=== PATIENT | male | born 1960 | race Caucasian/White ===

== ENCOUNTER 2023-08-22 07:39 | Outpatient (RCR) | payer OTHER, SELFPAY ==
[2023-08-22 11:46] LABS: Basophils Percent Auto 0.5 % (0.2-2.0); Eosinophils Absolute Auto 0.3 10^3/uL (0.0-0.7); Eosinophils Percent Auto 3.4 % (0.9-7.0); Hematocrit 39.5 % (42.0-54.0); Hemoglobin 12.6 g/dL (14.0-18.0); Immature Granulocytes Abs Auto 0.04 10^3/uL (0.00-0.03); Immature Granulocytes Pct Auto 0.5 % (0.0-0.5); Lymphocytes Absolute Auto 2.3 10^3/uL (1.2-3.8); Lymphocytes Percent Auto 28.3 % (20.5-60.0); Mean Corpuscular HGB Conc 31.9 g/dL (29.9-35.2); Mean Corpuscular Hemoglobin 30.4 pg (25.9-34.0); Mean Corpuscular Volume 95.2 fL (80.0-94.0); Mean Platelet Volume 10.7 fL (9.5-13.5); Monocytes Absolute Auto 0.8 10^3/uL (0.3-0.8); Monocytes Percent Auto 9.4 % (1.7-12.0); Neutrophils Absolute Auto 4.6 10^3/uL (1.4-6.5); Neutrophils Percent Auto 57.9 % (43.0-75.0); Platelet Count 135 10^3/uL (150-450); Red Blood Count 4.15 10^6/uL (4.70-6.10); Red Cell Distribution Width 14.9 % (11.0-15.0)
[2023-08-22 12:00] LABS: Alanine Aminotransferase 31 U/L (16-63); Albumin Globulin Ratio 0.9; Albumin Level 3.5 g/dL (3.4-5.0); Alkaline Phosphatase 58 U/L (46-116); Anion Gap 9.6; Aspartate Amino Transferase 39 U/L (15-37); BUN Creatinine Ratio 20.8; Bilirubin Total 0.5 mg/dL (0.2-1.0); Calcium 9.1 mg/dL (8.5-10.1); Carbon Dioxide 34.6 mmol/L (21.0-32.0); Chloride 100 mmol/L (98-107); Estimated GFR (African America >60 (>=60); Estimated GFR (Non-African Ame >60 (>=60); Globulin 3.8 g/dL; Glucose 122 mg/dL (74-106); Lactate Dehydrogenase 244 U/L (85-227); Potassium 4.2 mmol/L (3.5-5.1); Sodium 140 mmol/L (136-145); Total Protein 7.3 g/dL (6.4-8.2)
== END 2023-08-24 23:59 | disposition home or self-care (01) ==
LOC: INF 07:39
PROVIDERS: Visit Provider Internal Medicine Hematology & Oncology
DX: C85.11 Unspecified B-cell lymphoma, lymph nodes of head, face, and neck (principal)
CPT/HCPCS: 36415; 80053; 83615; 85025; 99205; G0463

== ENCOUNTER 2023-10-24 07:23 | Outpatient (RCR) | payer OTHER, SELFPAY ==
[2023-10-10 10:55] VITALS: BP 167/75; PULSE 82; RESP 20; TEMP 36.7; O2SAT 93
[2023-10-10] MEDS: ACETAMINOPHEN 500 MG TABLET 1000 MG PO (11:01)
[2023-10-10] MEDS: SODIUM CHLORIDE 0.9% IV ×3 (11:03→11:56)
[2023-10-10] MEDS: DIPHENHYDRAMINE HCL IV (11:03)
--- NOTE | 2023-10-10 11:11 | PC.NURSE ---
1045 Reviewed regimen with patient, what to expect. Educated on potential reaction, notify nurse of chills, shaking fever, shortness of breath etc. heart tones distant, strong.regular. Lungs clear to auscultation posteriorly. Brother Accompanies patient.
[2023-10-10] MEDS: METHYLPREDNISOLONE SOD SUCC IV (11:24)
[2023-10-10] MEDS: RITUXIMAB PVVR IV (11:56)
--- NOTE | 2023-10-10 12:01 | PC.NURSE ---
1200 Rituximab initiated per protocol at 50 ml/hr patient aware to notify staff for any chills/fever shaking, itching etc.
[2023-10-10 12:12] VITALS: BP 131/70; PULSE 60; RESP 18; TEMP 36.5; O2SAT 93
--- NOTE | 2023-10-10 12:59 | PC.NURSE ---
1300 tolerating infusion, no s/s of reaction, increased rate to 100 ml hr.
--- NOTE | 2023-10-10 13:29 | PC.NURSE ---
Tolerating infusion at 100 ml hr. No s/s of reaction. Meal ordered.
[2023-10-10 13:32] VITALS: BP 157/90; PULSE 60; RESP 18; TEMP 36.4
[2023-10-10 14:18] VITALS: BP 152/80; PULSE 80; RESP 18; TEMP 36.8; O2SAT 96
--- NOTE | 2023-10-10 14:18 | PC.NURSE ---
1300 tolerating infusionn without any s/s of reaction, rate increased to 150 ml hr.
--- NOTE | 2023-10-10 14:30 | PC.NURSE ---
1430 tolerating infusionwithout s/s of reaction. Eats 100 meal.
[2023-10-10 15:51] VITALS: BP 156/78; PULSE 70; RESP 18; TEMP 36.6; O2SAT 95
--- NOTE | 2023-10-10 15:52 | PC.NURSE ---
1530 up to bathroom x 2, post chemo infusion precautions discussed, patient verbalizes understanding. Tolerating infusion without any outward s/s of reaction
--- NOTE | 2023-10-10 16:45 | PC.NURSE ---
Infusion complete. IV catheter dc'd, site clear, catheter intact. tolerated well. 1640 Tolerated infusion with no signs of reaction. Released ambulatory
[2023-10-17 10:06] VITALS: BP 132/66; PULSE 66; RESP 20; TEMP 36.1; O2SAT 92
--- NOTE | 2023-10-17 10:11 | PC.NURSE ---
0845 arrival ambulatory, alert oriented, denies any complaints, respirations even regular. heart tones strong and regular. IV initated left wrist area with #20 IV, tolerated well, excellent blood return. labs drawn. sent to lab. tolerated well.
[2023-10-17 10:16] LABS: Alanine Aminotransferase 21 U/L (16-63); Albumin Globulin Ratio 0.9; Albumin Level 3.6 g/dL (3.4-5.0); Alkaline Phosphatase 63 U/L (46-116); Anion Gap 13.7; Aspartate Amino Transferase 8 U/L (15-37); BUN Creatinine Ratio 18.6; Bilirubin Total 0.7 mg/dL (0.2-1.0); Calcium 9.4 mg/dL (8.5-10.1); Carbon Dioxide 30.2 mmol/L (21.0-32.0); Chloride 100 mmol/L (98-107); Estimated GFR (African America >60 (>=60); Estimated GFR (Non-African Ame >60 (>=60); Globulin 3.8 g/dL; Glucose 233 mg/dL (74-106); Potassium 3.9 mmol/L (3.5-5.1); Sodium 140 mmol/L (136-145); Total Protein 7.4 g/dL (6.4-8.2)
[2023-10-17 10:57] LABS: Basophils Percent Auto 0.6 % (0.2-2.0); Eosinophils Absolute Auto 0.2 10^3/uL (0.0-0.7); Eosinophils Percent Auto 3.4 % (0.9-7.0); Hematocrit 41.4 % (42.0-54.0); Hemoglobin 13.2 g/dL (14.0-18.0); Immature Granulocytes Abs Auto 0.06 10^3/uL (0.00-0.03); Immature Granulocytes Pct Auto 0.9 % (0.0-0.5); Lymphocytes Absolute Auto 1.5 10^3/uL (1.2-3.8); Lymphocytes Percent Auto 21.9 % (20.5-60.0); Mean Corpuscular HGB Conc 31.9 g/dL (29.9-35.2); Mean Corpuscular Hemoglobin 30.1 pg (25.9-34.0); Mean Corpuscular Volume 94.3 fL (80.0-94.0); Mean Platelet Volume 11.7 fL (9.5-13.5); Monocytes Absolute Auto 0.7 10^3/uL (0.3-0.8); Monocytes Percent Auto 9.7 % (1.7-12.0); Neutrophils Absolute Auto 4.5 10^3/uL (1.4-6.5); Neutrophils Percent Auto 63.5 % (43.0-75.0); Platelet Count 136 10^3/uL (150-450); Red Blood Count 4.39 10^6/uL (4.70-6.10); Red Cell Distribution Width 14.1 % (11.0-15.0)
[2023-10-17] MEDS: SODIUM CHLORIDE 0.9% IV ×3 (11:32→12:19)
[2023-10-17] MEDS: DIPHENHYDRAMINE HCL IV (11:32)
[2023-10-17] MEDS: 0.9 % SODIUM CHLORIDE 250 ML 10 ML IV (11:34)
--- NOTE | 2023-10-17 11:35 | PC.NURSE ---
Iniitiated pre-meds as ordered.
[2023-10-17] MEDS: ACETAMINOPHEN 500 MG TABLET 1000 MG PO (11:43)
[2023-10-17] MEDS: METHYLPREDNISOLONE SOD SUCC IV (11:56)
[2023-10-17] MEDS: RITUXIMAB PVVR IV (12:19)
--- NOTE | 2023-10-17 12:52 | PC.NURSE ---
1219 IV Rituximab initated at 100 mg/her. instructed patient to call for any s/s of reaction. verbalized understanding. 1250 Rituximab increased to 200mg/her, tolerating well. resting quietly in chair respirations with ease. Family member at chairside.
--- NOTE | 2023-10-17 14:06 | PC.NURSE ---
1320 tolerating infusion without any issues. rate increaased to 300 mg/hr. 1350 rituximab rate increasead to 400mg/hr. ppatient tolerating well. dozes in recliner. brother at bedside. 1410 Eating meal at bedside.
--- NOTE | 2023-10-17 16:09 | PC.NURSE ---
1600 infusion completed. IV site dc'd catheter intact. cottonball and coban applied. Released ambulatory
[2023-10-24 09:31] LABS: Basophils Percent Auto 0.4 % (0.2-2.0); Eosinophils Absolute Auto 0.1 10^3/uL (0.0-0.7); Eosinophils Percent Auto 1.5 % (0.9-7.0); Hematocrit 41.3 % (42.0-54.0); Hemoglobin 13.3 g/dL (14.0-18.0); Immature Granulocytes Abs Auto 0.06 10^3/uL (0.00-0.03); Immature Granulocytes Pct Auto 0.7 % (0.0-0.5); Lymphocytes Absolute Auto 1.9 10^3/uL (1.2-3.8); Lymphocytes Percent Auto 20.6 % (20.5-60.0); Mean Corpuscular HGB Conc 32.2 g/dL (29.9-35.2); Mean Corpuscular Hemoglobin 30.2 pg (25.9-34.0); Mean Corpuscular Volume 93.9 fL (80.0-94.0); Mean Platelet Volume 11.1 fL (9.5-13.5); Monocytes Absolute Auto 0.9 10^3/uL (0.3-0.8); Monocytes Percent Auto 9.6 % (1.7-12.0); Neutrophils Absolute Auto 6.2 10^3/uL (1.4-6.5); Neutrophils Percent Auto 67.2 % (43.0-75.0); Platelet Count 134 10^3/uL (150-450); Red Cell Distribution Width 13.7 % (11.0-15.0); White Blood Count 9.2 10^3/uL (4.0-11.0)
[2023-10-24 09:36] VITALS: BP 132/80; PULSE 80; RESP 18; TEMP 36.9; O2SAT 94
[2023-10-24 09:53] LABS: Alanine Aminotransferase 25 U/L (16-63); Albumin Globulin Ratio 0.9; Albumin Level 3.5 g/dL (3.4-5.0); Alkaline Phosphatase 78 U/L (46-116); Anion Gap 11.1; Aspartate Amino Transferase 10 U/L (15-37); BUN Creatinine Ratio 14.7; Bilirubin Total 0.5 mg/dL (0.2-1.0); Calcium 9.4 mg/dL (8.5-10.1); Carbon Dioxide 31.1 mmol/L (21.0-32.0); Chloride 98 mmol/L (98-107); Estimated GFR (African America >60 (>=60); Estimated GFR (Non-African Ame >60 (>=60); Globulin 4.1 g/dL; Glucose 310 mg/dL (74-106); Potassium 4.2 mmol/L (3.5-5.1); Sodium 136 mmol/L (136-145); Total Protein 7.6 g/dL (6.4-8.2)
[2023-10-24] MEDS: 0.9 % SODIUM CHLORIDE 250 ML 30 ML IV (10:30)
[2023-10-24] MEDS: DIPHENHYDRAMINE HCL IV (10:50)
[2023-10-24] MEDS: SODIUM CHLORIDE 0.9% IV ×3 (10:50→11:26)
[2023-10-24] MEDS: ACETAMINOPHEN 500 MG TABLET 1000 MG PO (10:50)
[2023-10-24] MEDS: METHYLPREDNISOLONE SOD SUCC IV (11:13)
[2023-10-24] MEDS: RITUXIMAB PVVR IV (11:26)
--- NOTE | 2023-10-24 12:33 | PC.NURSE ---
tolerating infusion without issues. appears to be dozing in recliner, respirations with ease
--- NOTE | 2023-10-24 12:54 | PC.NURSE ---
tolerating infusion without any adverse affects. infusing at 300 mg/hr ( starated at 100mg/hr and increased every 30 mins by100 mg to max dose of 400mg/hr. Eats meal.
[2023-10-24 13:55] VITALS: BP 162/85; PULSE 69; RESP 20; TEMP 36.6; O2SAT 92
--- NOTE | 2023-10-24 15:11 | PC.NURSE ---
1445 Infusion completed, tolerated without any adverse side effects.IV site dc'd catheter intact, site clear. patient tolerated well. cottonball secured with coban. Released ambulatory.
== END 2023-10-25 23:59 | disposition home or self-care (01) ==
LOC: INF 07:23
PROVIDERS: Visit Provider Internal Medicine Hematology & Oncology
DX: Z51.11 Encounter for antineoplastic chemotherapy (principal); C85.11 Unspecified B-cell lymphoma, lymph nodes of head, face, and neck; D64.9 Anemia, unspecified; C82.61 Cutaneous follicle center lymphoma, lymph nodes of head, face, and neck; Z87.891 Personal history of nicotine dependence; J44.9 Chronic obstructive pulmonary disease, unspecified; I48.92 Unspecified atrial flutter; Z79.01 Long term (current) use of anticoagulants; R73.9 Hyperglycemia, unspecified; I80.9 Phlebitis and thrombophlebitis of unspecified site; I11.0 Hypertensive heart disease with heart failure; M48.00 Spinal stenosis, site unspecified; E66.9 Obesity, unspecified
CPT/HCPCS: 36415; 80053; 85025; 96367; 96368; 96413; 96415; G0463; J1200; J2930; Q5119

== ENCOUNTER 2023-11-21 07:27 | Outpatient (RCR) | payer OTHER, SELFPAY ==
[2023-11-07 09:18] VITALS: BP 112/77; PULSE 54; RESP 20; TEMP 36.3; O2SAT 93
--- NOTE | 2023-11-07 09:21 | PC.NURSE ---
patient has no complaints at this time. Lungs clear to ausculatation. heart tones regular at this time. some pretibial edema, which patient states this isnormal
[2023-11-07 09:31] LABS: Basophils Percent Auto 0.4 % (0.2-2.0); Eosinophils Absolute Auto 0.2 10^3/uL (0.0-0.7); Eosinophils Percent Auto 2.5 % (0.9-7.0); Hematocrit 38.8 % (42.0-54.0); Hemoglobin 12.5 g/dL (14.0-18.0); Immature Granulocytes Abs Auto 0.04 10^3/uL (0.00-0.03); Immature Granulocytes Pct Auto 0.5 % (0.0-0.5); Lymphocytes Absolute Auto 1.8 10^3/uL (1.2-3.8); Lymphocytes Percent Auto 22.3 % (20.5-60.0); Mean Corpuscular HGB Conc 32.2 g/dL (29.9-35.2); Mean Corpuscular Hemoglobin 30.2 pg (25.9-34.0); Mean Corpuscular Volume 93.7 fL (80.0-94.0); Mean Platelet Volume 11.2 fL (9.5-13.5); Monocytes Absolute Auto 0.7 10^3/uL (0.3-0.8); Monocytes Percent Auto 8.8 % (1.7-12.0); Neutrophils Absolute Auto 5.2 10^3/uL (1.4-6.5); Neutrophils Percent Auto 65.5 % (43.0-75.0); Platelet Count 143 10^3/uL (150-450); Red Blood Count 4.14 10^6/uL (4.70-6.10); Red Cell Distribution Width 13.9 % (11.0-15.0)
[2023-11-07 10:14] LABS: Alanine Aminotransferase 26 U/L (16-63); Albumin Globulin Ratio 0.8; Albumin Level 3.3 g/dL (3.4-5.0); Alkaline Phosphatase 66 U/L (46-116); Anion Gap 11.6; Aspartate Amino Transferase 13 U/L (15-37); BUN Creatinine Ratio 13.4; Bilirubin Total 0.5 mg/dL (0.2-1.0); Calcium 9.1 mg/dL (8.5-10.1); Carbon Dioxide 30.3 mmol/L (21.0-32.0); Chloride 99 mmol/L (98-107); Estimated GFR (African America >60 (>=60); Estimated GFR (Non-African Ame >60 (>=60); Glucose 232 mg/dL (74-106); Potassium 3.9 mmol/L (3.5-5.1); Sodium 137 mmol/L (136-145); Total Protein 7.3 g/dL (6.4-8.2)
[2023-11-07] MEDS: SODIUM CHLORIDE 0.9% IV ×3 (10:15→10:55)
[2023-11-07] MEDS: ACETAMINOPHEN 500 MG TABLET 1000 MG PO (10:15)
[2023-11-07] MEDS: METHYLPREDNISOLONE SOD SUCC IV (10:15)
--- NOTE | 2023-11-07 10:32 | PC.NURSE ---
1015 premeds initiated as ordered. relaxing in recliner doing puzzle books, drinking water. brother at chairside.
[2023-11-07] MEDS: DIPHENHYDRAMINE HCL IV (10:37)
[2023-11-07] MEDS: RITUXIMAB PVVR IV (10:55)
[2023-11-07] MEDS: 0.9 % SODIUM CHLORIDE 250 ML 10 ML IV (11:00)
--- NOTE | 2023-11-07 11:06 | PC.NURSE ---
1100 Premeds infused. IV rituximab-pvvr initiated, initiated at 100 mg/hr for 30 mins, then increased to 200 mg/hr for 30 mins, followed by 300 mg per hour for 30 mins, 400 mg/hr for remainder
--- NOTE | 2023-11-07 13:36 | PC.NURSE ---
tolerating infusion without any issues. eats 100% of meal.
--- NOTE | 2023-11-07 13:59 | PC.NURSE ---
134 up to bathroom, gait steady
[2023-11-07 14:46] VITALS: BP 147/76; PULSE 68; RESP 20; TEMP 36.3; O2SAT 92
--- NOTE | 2023-11-07 14:47 | PC.NURSE ---
1440 Infusion completed. line flushed with normal saline, IV dc'd from rt forearm, catheter intact, site clear. cottonball and coban applied. Up to bathroom. 1445 Released ambulatory
[2023-11-14 09:07] VITALS: BP 175/66; PULSE 67; RESP 18; TEMP 36.4; O2SAT 94
[2023-11-14 09:19] LABS: Basophils Percent Auto 0.5 % (0.2-2.0); Eosinophils Absolute Auto 0.2 10^3/uL (0.0-0.7); Eosinophils Percent Auto 2.5 % (0.9-7.0); Hematocrit 39.8 % (42.0-54.0); Hemoglobin 12.9 g/dL (14.0-18.0); Immature Granulocytes Abs Auto 0.07 10^3/uL (0.00-0.03); Immature Granulocytes Pct Auto 0.8 % (0.0-0.5); Lymphocytes Percent Auto 23.5 % (20.5-60.0); Mean Corpuscular HGB Conc 32.4 g/dL (29.9-35.2); Mean Corpuscular Hemoglobin 30.1 pg (25.9-34.0); Mean Platelet Volume 11.2 fL (9.5-13.5); Monocytes Percent Auto 11.3 % (1.7-12.0); Neutrophils Absolute Auto 5.2 10^3/uL (1.4-6.5); Neutrophils Percent Auto 61.4 % (43.0-75.0); Platelet Count 152 10^3/uL (150-450); Red Blood Count 4.28 10^6/uL (4.70-6.10); Red Cell Distribution Width 13.9 % (11.0-15.0); White Blood Count 8.4 10^3/uL (4.0-11.0)
[2023-11-14 09:23] LABS: Alanine Aminotransferase 27 U/L (16-63); Albumin Globulin Ratio 0.9; Albumin Level 3.4 g/dL (3.4-5.0); Alkaline Phosphatase 62 U/L (46-116); Anion Gap 14.2; Aspartate Amino Transferase 9 U/L (15-37); BUN Creatinine Ratio 14.8; Bilirubin Total 0.5 mg/dL (0.2-1.0); Calcium 9.1 mg/dL (8.5-10.1); Carbon Dioxide 28.8 mmol/L (21.0-32.0); Chloride 97 mmol/L (98-107); Estimated GFR (African America >60 (>=60); Estimated GFR (Non-African Ame >60 (>=60); Globulin 3.9 g/dL; Glucose 215 mg/dL (74-106); Sodium 136 mmol/L (136-145); Total Protein 7.3 g/dL (6.4-8.2)
[2023-11-14] MEDS: SODIUM CHLORIDE 0.9% IV ×3 (10:00→10:46)
[2023-11-14] MEDS: DIPHENHYDRAMINE HCL IV (10:00)
[2023-11-14] MEDS: ACETAMINOPHEN 500 MG TABLET 1000 MG PO (10:14)
[2023-11-14] MEDS: 0.9 % SODIUM CHLORIDE 250 ML 10 ML IV (10:15)
[2023-11-14] MEDS: METHYLPREDNISOLONE SOD SUCC IV (10:22)
[2023-11-14] MEDS: RITUXIMAB PVVR IV (10:46)
--- NOTE | 2023-11-14 11:28 | PC.NURSE ---
1045 Rituximab 940 mg/500cc initiated at 100 mg hr for 30 mins. Patient instructed on s/s of reaction, verbalizes understanding.
--- NOTE | 2023-11-14 11:30 | PC.NURSE ---
1115 tolerating infusion without any s/s of reaction, rate increased to 200 mg hr for 30 mins
--- NOTE | 2023-11-14 11:46 | PC.NURSE ---
1145 tolerating well no s/s reaction, rarte increased to 300 mg hr.
--- NOTE | 2023-11-14 14:52 | PC.NURSE ---
1350 Infusion completed, tolerated well. IV site dc'd catheter intact. cottonball applied. coban applied. released ambulatory.
[2023-11-21 09:06] VITALS: BP 172/83; PULSE 85; RESP 18; TEMP 36.3; O2SAT 93
--- NOTE | 2023-11-21 09:09 | PC.NURSE ---
0855 Arrival ambulatory. IV initiated rt forearm, tolerated well. Labs drawn, sent to lab.
[2023-11-21 09:16] LABS: Basophils Percent Auto 0.4 % (0.2-2.0); Eosinophils Absolute Auto 0.2 10^3/uL (0.0-0.7); Hematocrit 39.5 % (42.0-54.0); Immature Granulocytes Abs Auto 0.05 10^3/uL (0.00-0.03); Immature Granulocytes Pct Auto 0.6 % (0.0-0.5); Lymphocytes Absolute Auto 1.8 10^3/uL (1.2-3.8); Lymphocytes Percent Auto 22.6 % (20.5-60.0); Mean Corpuscular HGB Conc 32.9 g/dL (29.9-35.2); Mean Corpuscular Hemoglobin 30.6 pg (25.9-34.0); Mean Corpuscular Volume 92.9 fL (80.0-94.0); Mean Platelet Volume 11.2 fL (9.5-13.5); Monocytes Absolute Auto 0.7 10^3/uL (0.3-0.8); Monocytes Percent Auto 8.8 % (1.7-12.0); Neutrophils Absolute Auto 5.3 10^3/uL (1.4-6.5); Neutrophils Percent Auto 65.6 % (43.0-75.0); Platelet Count 139 10^3/uL (150-450); Red Blood Count 4.25 10^6/uL (4.70-6.10); Red Cell Distribution Width 13.8 % (11.0-15.0); White Blood Count 8.1 10^3/uL (4.0-11.0)
--- NOTE | 2023-11-21 09:18 | PC.NURSE ---
Dr Valenzuela in for appt.
[2023-11-21 09:23] LABS: Anion Gap 12.9; Calcium 8.9 mg/dL (8.5-10.1); Carbon Dioxide 29.9 mmol/L (21.0-32.0); Chloride 96 mmol/L (98-107); Estimated GFR (African America >60 (>=60); Estimated GFR (Non-African Ame >60 (>=60); Glucose 278 mg/dL (74-106); Potassium 3.8 mmol/L (3.5-5.1); Sodium 135 mmol/L (136-145)
[2023-11-21] MEDS: DIPHENHYDRAMINE HCL IV (09:55)
[2023-11-21] MEDS: SODIUM CHLORIDE 0.9% IV ×3 (09:55→10:35)
[2023-11-21] MEDS: ACETAMINOPHEN 500 MG TABLET 1000 MG PO (10:02)
[2023-11-21] MEDS: METHYLPREDNISOLONE SOD SUCC IV (10:26)
[2023-11-21] MEDS: RITUXIMAB PVVR IV (10:35)
--- NOTE | 2023-11-21 11:26 | PC.NURSE ---
Tolerating infusion without difficulty escalating at 100 mg hr everyn 30 mins.
[2023-11-21 13:30] VITALS: BP 145/78; PULSE 80; RESP 18; TEMP 36.3; O2SAT 93
== END 2023-11-23 23:59 | disposition home or self-care (01) ==
LOC: INF 07:27
PROVIDERS: Visit Provider Internal Medicine Hematology & Oncology
DX: Z51.12 Encounter for antineoplastic immunotherapy (principal); C82.61 Cutaneous follicle center lymphoma, lymph nodes of head, face, and neck; D64.9 Anemia, unspecified; D69.6 Thrombocytopenia, unspecified; Z79.01 Long term (current) use of anticoagulants; I48.92 Unspecified atrial flutter; I50.9 Heart failure, unspecified; I11.0 Hypertensive heart disease with heart failure; J44.9 Chronic obstructive pulmonary disease, unspecified; Z87.891 Personal history of nicotine dependence; R73.9 Hyperglycemia, unspecified; Z79.84 Long term (current) use of oral hypoglycemic drugs; M54.50 Low back pain, unspecified; G89.29 Other chronic pain
CPT/HCPCS: 36415; 80048; 80053; 85025; 96367; 96368; 96413; 96415; G0463; J2930; Q5119

== ENCOUNTER 2023-12-05 07:29 | Outpatient (RCR) | payer OTHER, SELFPAY ==
[2023-11-28 09:22] VITALS: BP 141/68; PULSE 67; RESP 18; TEMP 36.6; O2SAT 93
[2023-11-28 09:25] LABS: Basophils Percent Auto 0.4 % (0.2-2.0); Eosinophils Absolute Auto 0.2 10^3/uL (0.0-0.7); Eosinophils Percent Auto 1.8 % (0.9-7.0); Hematocrit 38.8 % (42.0-54.0); Hemoglobin 12.7 g/dL (14.0-18.0); Immature Granulocytes Abs Auto 0.06 10^3/uL (0.00-0.03); Immature Granulocytes Pct Auto 0.7 % (0.0-0.5); Lymphocytes Absolute Auto 1.5 10^3/uL (1.2-3.8); Lymphocytes Percent Auto 18.9 % (20.5-60.0); Mean Corpuscular HGB Conc 32.7 g/dL (29.9-35.2); Mean Corpuscular Volume 91.5 fL (80.0-94.0); Mean Platelet Volume 11.1 fL (9.5-13.5); Monocytes Absolute Auto 0.9 10^3/uL (0.3-0.8); Neutrophils Absolute Auto 5.5 10^3/uL (1.4-6.5); Neutrophils Percent Auto 67.2 % (43.0-75.0); Platelet Count 126 10^3/uL (150-450); Red Blood Count 4.24 10^6/uL (4.70-6.10); Red Cell Distribution Width 13.8 % (11.0-15.0); White Blood Count 8.2 10^3/uL (4.0-11.0)
[2023-11-28] MEDS: DIPHENHYDRAMINE HCL IV (09:48)
[2023-11-28] MEDS: SODIUM CHLORIDE 0.9% IV ×3 (09:48→10:33)
[2023-11-28] MEDS: ACETAMINOPHEN 500 MG TABLET 1000 MG PO (09:48)
[2023-11-28] MEDS: 0.9 % SODIUM CHLORIDE 250 ML 10 ML IV (09:48)
[2023-11-28 09:50] LABS: Alanine Aminotransferase 36 U/L (16-63); Albumin Level 3.6 g/dL (3.4-5.0); Alkaline Phosphatase 65 U/L (46-116); Anion Gap 9.5; Aspartate Amino Transferase 16 U/L (15-37); BUN Creatinine Ratio 12.6; Bilirubin Total 0.8 mg/dL (0.2-1.0); Calcium 9.3 mg/dL (8.5-10.1); Carbon Dioxide 32.5 mmol/L (21.0-32.0); Chloride 98 mmol/L (98-107); Estimated GFR (African America >60 (>=60); Estimated GFR (Non-African Ame >60 (>=60); Globulin 3.7 g/dL; Glucose 267 mg/dL (74-106); Sodium 136 mmol/L (136-145); Total Protein 7.3 g/dL (6.4-8.2)
[2023-11-28] MEDS: METHYLPREDNISOLONE SOD SUCC IV (10:12)
[2023-11-28] MEDS: RITUXIMAB PVVR IV (10:33)
--- NOTE | 2023-11-28 10:46 | PC.NURSE ---
pre meds completed, IV Rituximab initiated at 100 ml hr as ordered. complains of heartburn, patient states he normally doesn't get this.
--- NOTE | 2023-11-28 11:17 | PC.NURSE ---
1106 infusion increased to 200 mg/hr, tolerating well. Medicated with tums 2 po for complaints of heartburn
[2023-11-28 11:31] VITALS: BP 137/84; PULSE 90; RESP 22; TEMP 36.2; O2SAT 93
[2023-11-28] MEDS: CALCIUM CARBONATE 500 MG (200MG ELEMENTAL) TAB CHEW 1000 MG PO (11:48)
--- NOTE | 2023-11-28 11:49 | PC.NURSE ---
1135 Tolerating infusion without any difficulty, up to bathroom. vs obtained. rate increased to 300mghr.
--- NOTE | 2023-11-28 13:59 | PC.NURSE ---
1340 Infusion completed, patient tolerated well. IV dc'd catheter intact.site clear. 1345 Released ambulatory
[2023-12-05 09:30] LABS: Basophils Percent Auto 0.4 % (0.2-2.0); Eosinophils Absolute Auto 0.2 10^3/uL (0.0-0.7); Eosinophils Percent Auto 2.1 % (0.9-7.0); Hematocrit 38.9 % (42.0-54.0); Hemoglobin 12.6 g/dL (14.0-18.0); Immature Granulocytes Abs Auto 0.06 10^3/uL (0.00-0.03); Immature Granulocytes Pct Auto 0.7 % (0.0-0.5); Lymphocytes Percent Auto 24.4 % (20.5-60.0); Mean Corpuscular HGB Conc 32.4 g/dL (29.9-35.2); Mean Corpuscular Hemoglobin 29.9 pg (25.9-34.0); Mean Corpuscular Volume 92.4 fL (80.0-94.0); Mean Platelet Volume 11.6 fL (9.5-13.5); Monocytes Absolute Auto 0.8 10^3/uL (0.3-0.8); Monocytes Percent Auto 9.5 % (1.7-12.0); Neutrophils Absolute Auto 5.1 10^3/uL (1.4-6.5); Neutrophils Percent Auto 62.9 % (43.0-75.0); Platelet Count 142 10^3/uL (150-450); Red Blood Count 4.21 10^6/uL (4.70-6.10); Red Cell Distribution Width 13.8 % (11.0-15.0); White Blood Count 8.1 10^3/uL (4.0-11.0)
[2023-12-05 09:31] VITALS: BP 173/74; PULSE 72; RESP 20; TEMP 36.9; O2SAT 92
[2023-12-05 09:39] LABS: Anion Gap 14.1; BUN Creatinine Ratio 11.5; Calcium 9.7 mg/dL (8.5-10.1); Carbon Dioxide 30.7 mmol/L (21.0-32.0); Chloride 99 mmol/L (98-107); Estimated GFR (African America >60 (>=60); Estimated GFR (Non-African Ame >60 (>=60); Glucose 153 mg/dL (74-106); Potassium 3.8 mmol/L (3.5-5.1); Sodium 140 mmol/L (136-145)
[2023-12-05] MEDS: 0.9 % SODIUM CHLORIDE 250 ML 10 ML IV (10:00)
[2023-12-05] MEDS: ACETAMINOPHEN 500 MG TABLET 1000 MG PO (10:13)
[2023-12-05] MEDS: SODIUM CHLORIDE 0.9% IV ×3 (10:18→11:17)
[2023-12-05] MEDS: DIPHENHYDRAMINE HCL IV (10:18)
[2023-12-05] MEDS: METHYLPREDNISOLONE SOD SUCC IV (10:38)
[2023-12-05] MEDS: RITUXIMAB PVVR IV (11:17)
--- NOTE | 2023-12-05 11:39 | PC.NURSE ---
1117 iv rituximab initiated at 100 mg/hr as ordered, all pre meds completed prior to rituxumab.
--- NOTE | 2023-12-05 13:33 | PC.NURSE ---
1330 Ate 100% meal, dozes on and off, brrother at chairside. Tolerating infusion without difficulty
--- NOTE | 2023-12-05 16:40 | PC.NURSE ---
1430 IV infusion completed. IV dc'd catheter intact site clear.
== END 2023-12-24 23:59 | disposition home or self-care (01) ==
LOC: INF 07:29
PROVIDERS: Visit Provider Internal Medicine Hematology & Oncology
DX: Z51.12 Encounter for antineoplastic immunotherapy (principal); C82.61 Cutaneous follicle center lymphoma, lymph nodes of head, face, and neck; D69.6 Thrombocytopenia, unspecified; Z87.891 Personal history of nicotine dependence; Z79.01 Long term (current) use of anticoagulants; J44.9 Chronic obstructive pulmonary disease, unspecified; I50.9 Heart failure, unspecified; I11.0 Hypertensive heart disease with heart failure; I48.92 Unspecified atrial flutter; R73.9 Hyperglycemia, unspecified
CPT/HCPCS: 36415; 80048; 80053; 85025; 96367; 96375; 96413; 96415; G0463; J2930; Q5119

== ENCOUNTER 2024-01-16 07:31 | Outpatient (RCR) | payer OTHER, SELFPAY ==
[2024-01-16 13:14] LABS: Basophils Absolute Auto 0.1 10^3/uL (0.0-0.1); Basophils Percent Auto 0.6 % (0.2-2.0); Eosinophils Absolute Auto 0.3 10^3/uL (0.0-0.7); Hematocrit 40.8 % (42.0-54.0); Immature Granulocytes Abs Auto 0.04 10^3/uL (0.00-0.03); Immature Granulocytes Pct Auto 0.5 % (0.0-0.5); Lymphocytes Absolute Auto 1.4 10^3/uL (1.2-3.8); Lymphocytes Percent Auto 17.8 % (20.5-60.0); Mean Corpuscular HGB Conc 31.9 g/dL (29.9-35.2); Mean Corpuscular Volume 94.2 fL (80.0-94.0); Monocytes Absolute Auto 0.8 10^3/uL (0.3-0.8); Monocytes Percent Auto 9.5 % (1.7-12.0); Neutrophils Absolute Auto 5.5 10^3/uL (1.4-6.5); Neutrophils Percent Auto 67.6 % (43.0-75.0); Platelet Count 140 10^3/uL (150-450); Red Blood Count 4.33 10^6/uL (4.70-6.10); Red Cell Distribution Width 14.9 % (11.0-15.0); White Blood Count 8.1 10^3/uL (4.0-11.0)
[2024-01-16 13:24] LABS: Alanine Aminotransferase 26 U/L (16-63); Albumin Level 3.5 g/dL (3.4-5.0); Alkaline Phosphatase 69 U/L (46-116); Anion Gap 13.9; Aspartate Amino Transferase 16 U/L (15-37); BUN Creatinine Ratio 11.2; Bilirubin Total 0.6 mg/dL (0.2-1.0); Calcium 9.2 mg/dL (8.5-10.1); Carbon Dioxide 29.2 mmol/L (21.0-32.0); Chloride 100 mmol/L (98-107); Estimated GFR (African America >60 (>=60); Estimated GFR (Non-African Ame >60 (>=60); Globulin 3.6 g/dL; Glucose 195 mg/dL (74-106); Lactate Dehydrogenase 218 U/L (85-227); Potassium 4.1 mmol/L (3.5-5.1); Sodium 139 mmol/L (136-145); Total Protein 7.1 g/dL (6.4-8.2)
== END 2024-01-23 23:59 | disposition home or self-care (01) ==
LOC: INF 07:31
PROVIDERS: Visit Provider Internal Medicine Hematology & Oncology
DX: C85.11 Unspecified B-cell lymphoma, lymph nodes of head, face, and neck (principal); D64.9 Anemia, unspecified; D69.6 Thrombocytopenia, unspecified; C82.61 Cutaneous follicle center lymphoma, lymph nodes of head, face, and neck
CPT/HCPCS: 36415; 80053; 83615; 85025; G0463

== ENCOUNTER 2024-06-18 07:28 | Outpatient (RCR) | payer OTHER, SELFPAY ==
[2024-06-18 14:58] LABS: Basophils Percent Auto 0.4 % (0.2-2.0); Eosinophils Absolute Auto 0.3 10^3/uL (0.0-0.7); Eosinophils Percent Auto 3.1 % (0.9-7.0); Hematocrit 41.7 % (42.0-54.0); Hemoglobin 13.4 g/dL (14.0-18.0); Immature Granulocytes Abs Auto 0.04 10^3/uL (0.00-0.03); Immature Granulocytes Pct Auto 0.4 % (0.0-0.5); Lymphocytes Absolute Auto 1.5 10^3/uL (1.2-3.8); Lymphocytes Percent Auto 14.6 % (20.5-60.0); Mean Corpuscular HGB Conc 32.1 g/dL (29.9-35.2); Mean Corpuscular Hemoglobin 29.8 pg (25.9-34.0); Mean Corpuscular Volume 92.9 fL (80.0-94.0); Monocytes Absolute Auto 0.8 10^3/uL (0.3-0.8); Monocytes Percent Auto 8.1 % (1.7-12.0); Neutrophils Absolute Auto 7.4 10^3/uL (1.4-6.5); Neutrophils Percent Auto 73.4 % (43.0-75.0); Platelet Count 144 10^3/uL (150-450); Red Blood Count 4.49 10^6/uL (4.70-6.10); Red Cell Distribution Width 15.4 % (11.0-15.0); White Blood Count 10.1 10^3/uL (4.0-11.0)
[2024-06-18 15:13] LABS: Alanine Aminotransferase 39 U/L (16-63); Albumin Level 3.7 g/dL (3.4-5.0); Alkaline Phosphatase 78 U/L (46-116); Anion Gap 8.5; Aspartate Amino Transferase 30 U/L (15-37); BUN Creatinine Ratio 7.6; Bilirubin Total 0.7 mg/dL (0.2-1.0); Calcium 9.7 mg/dL (8.5-10.1); Carbon Dioxide 33.9 mmol/L (21.0-32.0); Chloride 96 mmol/L (98-107); Estimated GFR (African America >60 (>=60); Estimated GFR (Non-African Ame >60 (>=60); Globulin 3.6 g/dL; Glucose 130 mg/dL (74-106); Lactate Dehydrogenase 230 U/L (85-227); Potassium 4.4 mmol/L (3.5-5.1); Sodium 134 mmol/L (136-145); Total Protein 7.3 g/dL (6.4-8.2)
== END 2024-06-24 23:59 | disposition home or self-care (01) ==
LOC: HEMC 07:28
PROVIDERS: Visit Provider Internal Medicine Hematology & Oncology
DX: C85.11 Unspecified B-cell lymphoma, lymph nodes of head, face, and neck (principal); D64.9 Anemia, unspecified; D69.6 Thrombocytopenia, unspecified; C82.61 Cutaneous follicle center lymphoma, lymph nodes of head, face, and neck; Z87.891 Personal history of nicotine dependence
CPT/HCPCS: 36415; 80053; 83615; 85025; G0463